=== PATIENT | male | born 1960 | race Caucasian/White ===

== ENCOUNTER → 2018-03-21 | Outpatient (CLI) | payer OTHER ==
[~2018-03-21] MED LIST: AMBIEN5 MG PO; AVONEX30 MCG/0.5 INJ; BENICAR40 MG; GABAPENTIN300 MG; GADOBENATE DIMEGLUMINE 1 ML IV ONE; KEFLEX500 MG PO; LOVENOX30 MG/0.3 SC; METFORMIN HCL850 MG PO; NORCO 7.5-3251 EACH PO; TYLENOL PO; VALIUM5 MG PO
[2018-03-21 07:49] LABS: BLOOD UREA NITROGEN 14 mg/dL (8-26); BUN/CREATININE RATIO 20 (6-25); CREATININE, SERUM 0.7 mg/dL (0.9-1.3); EST GLOMERULAR FILTRATION RATE > 60 ML/MIN (60-)
--- NOTE | 2018-03-21 10:40 | Diagnostic Imaging Report ---
MRI BRAIN WOW HISTORY: MS COMPARISON: MRI of the brain 08/03/2016 TECHNIQUE: Multiplanar, multisequence MRI of the brain (including diffusion-weighted imaging) was performed before and after the administration of intravenous, gadolinium based contrast. Standard axial/sagittal FLAIR and postcontrast axial/coronal T1-weighted images were obtained. 20 mL of MultiHance were administered. DISCUSSION: Scalp/bone marrow: Unremarkable. Ventricles: Normal in size and configuration. No hydrocephalus. Extra-axial spaces: No masses or fluid collections. Parenchyma: T2 lesion load: Number: Approximately 5 mm T2 hyperintense lesion in the left lateral precentral gyrus subcortical white matter has not significantly changed. Previously seen right globus pallidus lesion is less conspicuous. No new T2 hyperintense lesions are seen. Size: As above. Location: As above. CSF-like T1 hypointensities: None. Enhancing foci: None. Corpus callosum volume: Adequate for age. Brain volume: Adequate for age. Otherwise, no mass, hemorrhage, or acute vascular insults. Vessels: Normal flow voids in major arteries and veins. Sellar/Suprasellar region: No abnormalities. Craniocervical junction: No abnormalities. Incidental findings: Mild T2 hyperintensity in the left mastoid air cells may be due to trace mastoid effusion. IMPRESSION: 1. Unchanged nonspecific subcentimeter T2 hyperintense lesion in the left lateral precentral gyrus subcortical white matter. Previously seen right globus pallidus lesion is less conspicuous. 2. No enhancing or new T2 hyperintense lesions. Signed by: Dr. Fredi Aguilar M.D. on 03/21/2018 10:37 AM
--- NOTE | 2018-03-21 11:10 | Diagnostic Imaging Report ---
MRI SPINE CERVICAL WOW, MRI SPINE THORACIC WOW HISTORY: MS COMPARISON: Concurrent brain MRI; MRI of the cervical and thoracic spine 08/03/2016 TECHNIQUE: Multiplanar, multisequence MRI examination of the cervical and thoracic spine was performed before and after the administration of intravenous, gadolinium based contrast. 20 mL of MultiHance were administered. Motion artifacts obscure some details. Sagittal STIR images through the thoracic spine were incomplete at the time of dictation. DISCUSSION: Alignment: Straightening of the cervical lordosis. Normal thoracic kyphosis. No significant subluxation or scoliosis. Vertebrae: No definite evidence for fractures, infection or neoplasm. Cervicomedullary junction: No abnormalities. Spinal cord: Small confluent T2 hyperintense lesions in the left lateral cord from C2-C3 to C4-C5 are unchanged. Small T2 hyperintense lesion in the left dorsal cord at C5 is also unchanged. No definite new cervical cord T2 hyperintense lesions are seen. Small T2 hyperintense lesions in the central/dorsal cord at T5, left lateral cord at T6-T7, central cord at T7-T8, and central/dorsal cord at T8-T9, left ventral cord at T10-T11, and central cord at T11 are unchanged. No definite new thoracic cord T2 hyperintense lesions are seen. The spinal cord is normal in size. No CSF-like T1 cord hypointensities are seen. No abnormal cord enhancement is seen. Soft tissues: The left thyroid lobe is mildly enlarged with T2 hyperintensity; this can be further evaluated with thyroid ultrasound. Degenerative changes: Mild multilevel cervical disc degeneration is most prominent at C6-C7. There is minimal disc degeneration in the thoracic spine. IMPRESSION: 1. Unchanged scattered T2 hyperintense lesions in the cervical and thoracic cord. 2. No enhancing or new T2 hyperintense cord lesions. Signed by: Dr. Fredi Aguilar M.D. on 03/21/2018 12:03 PM
== END ==
LOC: MRI 07:16
PROVIDERS: ATTEND Psychiatry & Neurology Neurology
DX: G35 Multiple sclerosis (principal)
CPT/HCPCS: 36415; 70553; 72156; 72157; 82565; 84520; A9577

== ENCOUNTER → 2019-11-06 | Outpatient (CLI) | payer OTHER ==
[2019-11-06 08:31] LABS: BLOOD UREA NITROGEN 15 mg/dL (7-26); BUN/CREATININE RATIO 13 (6-25); CREATININE, SERUM 1.13 mg/dL (0.72-1.25); EST GLOMERULAR FILTRATION RATE > 60 ML/MIN (60-)
--- NOTE | 2019-11-06 14:14 | Diagnostic Imaging Report ---
History: MS follow-up Comparison studies: Brain MRI 03/21/2018 Technique: Sagittal and axial T2 FLAIR, axial T2, precontrast axial T1 and postcontrast axial and coronal T1. Intravenous contrast: 20 cc of Gadavist. Findings: Scalp: No abnormal signal. No masses. Bone marrow: Normal in signal intensity. Brain sulci: Appropriate for age. Ventricles: Normal in size. No hydrocephalus. Extra axial spaces: No mass, no fluid collection. Parenchyma: A 5 mm T2 FLAIR hyperintense focus in the left precentral subcortical white matter is unchanged. No other signal abnormalities. No mass, hemorrhage No mass, hemorrhage or acute ischemia. Brain volume is normal for patient's age. No corpus callosal atrophy. Suprasellar region: No abnormalities. Craniocervical junction: Patent foramen magnum. No Chiari one malformation. Vessels: Normal flow-voids in the arteries and sinuses. Incidental findings: Small right mastoid effusion Left frontal ethmoidal sinuses associated secretions or retention cyst. IMPRESSION: 1. No changes from the prior brain MRI of 03/21/2018. 2. Small nonspecific left precentral subcortical white matter signal abnormality is unchanged. No new or enhancing lesions. Signed by: Dr. Jose Lopez M.D. on 11/06/2019 2:10 PM
--- NOTE | 2019-11-06 14:38 | Diagnostic Imaging Report ---
Exams: Cervical and thoracic spine MRIs without with IV contrast History: 59-year-old male with multiple sclerosis. Comparison studies: Cervical and thoracic spine MRIs of 03/21/2018. Technique: Sagittal precontrast T1, sagittal axial T2, sagittal STIR and postcontrast sagittal and axial T1. Intravenous contrast: 20 cc of Gadavist. Findings: Exams are somewhat of artifacts related to patient motion. In spite of limitations: Cervical spinal cord: No cord size: Normal in size from the cervical medullary junction to T1. T2 lesion load: No gross new lesions C2-C3: Left posterior cord. C3-C4: Left lateral cord. C5: Left posterior cord. Inferior C5: Focally in the left posterior cord. Thoracic spinal cord: Spinal Cord size: Grossly normal in size from T1 to superior L1 (the conus lies outside imaged of view). T2 lesion load: No new lesions. Multiple scattered lesions with sales and marketing representative lesions as follows: Superior T5: Central and dorsal cord. T6-T7: Left lateral cord. T6-T7 through superior T9, confluent and multifocal predominately in the central cord. T10-T11: Ventral and left lateral cord. [id number] central cord. Previous lesion at T3-T4 is not identified on the current study. T1 hypointense foci:None Enhancement: None T1 hypointense foci:None Enhancement: None Additional comments: Alignment: Normal cervical lordosis and thoracic kyphosis. Cervicomedullary junction: Patent foramen magnum. No Chiari one malformation. Soft tissues tissues: No signal abnormalities. Vertebral bodies: Compression fracture, infection or neoplasm.. Cervical degenerative changes: Mildly degenerated cervical disks at C3-C4, C5-C6, moderately degenerated disc at C6-C7 at C6-C7. Mild canal stenosis at C5-C6 due to disc ossify complex. Degenerative foraminal stenosis, moderate left and mild right at C3-C4, mild bilaterally at C4-C5 moderate right and mild left C5-C6 and moderate bilaterally at C6-C7 due to uncovertebral arthropathy, unchanged. Thoracic degenerative changes: Patent canal and foramina. Incidental findings: Enlarged left thyroid lobe with 1.8 cm left cyst or nodule is grossly unchanged and most recent MRI but has increased in size when compared to remote MRI which date 2012. IMPRESSION: Cervical and thoracic spines: 1. Nonenhancing demyelinating spinal cord lesions are unchanged from prior spine MRIs of 03/21/2018. No new or enhancing lesions. 2. Left thyroid lobe nodule, unchanged from recent exams, increased in size from more remote exams. Thyroid ultrasound may further evaluate. Signed by: Dr. Jose Lopez M.D. on 11/06/2019 2:35 PM
== END ==
LOC: MRI 07:37
PROVIDERS: ATTEND Psychiatry & Neurology Neurology
DX: G35 Multiple sclerosis (principal)
CPT/HCPCS: 36415; 70553; 72156; 72157; 82565; 84520; A9577

== ENCOUNTER → 2022-01-15 | Outpatient (CLI) | payer OTHER ==
[2022-01-15 13:15] LABS: CREATININE, SERUM 1.02 mg/dL (0.72-1.25)
== END ==
LOC: MRI 12:06
PROVIDERS: ATTEND Psychiatry & Neurology Neurology
DX: G35 Multiple sclerosis (principal)
CPT/HCPCS: 36415; 70553; 72156; 72157; 82565; 84520; A9577